=== PATIENT | male | born 1980 | race African-American/Black ===

== ENCOUNTER 2018-11-16 17:11 | Emergency (ER) | payer SELFPAY ==
[~2018-11-16] VITALS: Ht 185.4 cm; Wt 119.0 kg
[~2018-11-16 17:11] MED LIST: IBUP200T44 PO; PSEU1TAB PO
[2018-11-16] MEDS ORDERED: ONDANSETRON PF 4 MG/2 ML VIAL. IV ONE (18:00)
[2018-11-16] MEDS ORDERED: IV NORMAL SALINE 1000ML BAG 1,000 ML IV ONE ×2 (18:00→18:45)
[2018-11-16 18:07] LABS: BASO # 0.1 x10^3/uL (0.0-0.2); BASO % 1 % (0-3); EOS # 0.2 x10^3/uL (0.0-0.7); EOS % 1 % (0-3); HEMATOCRIT 49.7 % (39.0-53.0); HEMOGLOBIN 16.6 g/dL (13.0-17.5); LYMPH # 3.4 x10^3/uL (1.0-4.8); LYMPH % 23 % (24-48); MEAN CORPUSCULAR HEMOGLOBIN 27 pg (25-35); MEAN CORPUSCULAR HGB CONC 33 g/dL (31-37); MEAN CORPUSCULAR VOLUME 79 fL (79-100); MONO # 0.8 x10^3/uL (0.0-1.1); MONO % 6 % (0-9); NEUT # 10.3 x10^3uL (1.8-7.7); NEUT % 70 % (31-73); PLATELET COUNT 221 x10^3/uL (140-400); RED BLOOD COUNT 6.26 x10^6/uL (4.30-5.70); RED CELL DISTRIBUTION WIDTH 12.8 % (11.5-14.5); WHITE BLOOD COUNT 14.8 x10^3/uL (4.0-11.0)
[2018-11-16 18:24] LABS: CALCIUM 9.8 mg/dL (8.5-10.1); CREATININE 1.3 mg/dL (0.7-1.3); POTASSIUM 5.6 mmol/L (3.5-5.1)
--- NOTE | 2018-11-16 18:24 | RAD ---
Chest radiograph 11/16/2018 5:52 PM INDICATION: Dizzy COMPARISON: None available TECHNIQUE: Portable upright frontal view of the chest is provided. FINDINGS: The cardiomediastinal silhouette is within normal limits. There are no pleural effusions. There is no pulmonary vascular congestion. There is no pneumothorax. The lungs are clear. No significant osseous abnormality is identified. IMPRESSION: No acute cardiopulmonary process. Electronically signed by: Angelica Vera MD (11/16/2018 6:21 PM) [facility]
[2018-11-16 18:26] LABS: MAGNESIUM 2.1 mg/dL (1.8-2.4); TOTAL BILIRUBIN 0.4 mg/dL (0.2-1.0); TOTAL PROTEIN 8.2 g/dL (6.4-8.2)
[2018-11-16 18:35] LABS: CREATINE KINASE 306 U/L (39-308)
[2018-11-16] MEDS ORDERED: INSULIN REGULAR 100 UNIT/ML 3ML VIAL. IV ONE (18:45)
[2018-11-16 18:47] LABS: BILIRUBIN,URINE NEGATIVE (NEG); COLOR,URINE YELLOW; NITRITE,URINE NEGATIVE (NEG); PH,URINE 5.5; PROTEIN,URINE NEGATIVE (NEG-TRACE); UROBILINOGEN,URINE 0.2 mg/dL (0.2 mg/dL)
[2018-11-16 18:54] LABS: BARBITURATES NEG (NEG); BENZODIAZEPINES NEG (NEG); CANNABINOIDS NEG (NEG); COCAINE NEG (NEG); METHADONE NEG (NEG); OPIATES NEG (NEG); PHENCYCLIDINE NEG (NEG)
[2018-11-16 18:55] LABS: AMPHETAMINE/METHAMPHETAMINE NEG (NEG)
[2018-11-16 18:58] LABS: CLARITY,URINE CLEAR
[2018-11-16 19:00] LABS: BACTERIA,URINE 0 /HPF (0-FEW); RBC,URINE 0 /HPF (0-2); WBC,URINE 0 /HPF (0-4)
[2018-11-16 19:40] VITALS: BP 148/83
[2018-11-16] MEDS ORDERED: METF10007 PO (19:40)
[2018-11-16] MEDS ORDERED: ONDA4TAB7 PO (19:40)
--- NOTE | 2018-11-16 19:40 | PHYS DOC ---
Past Medical History Past Medical History: No Pertinent History Past Surgical History: No Surgical History Alcohol Use: Occasionally Drug Use: None Adult General Chief Complaint Chief Complaint: NAUSEA/VOMITING/DIARRHA HPI HPI Patient is a 38 year old male with no significant medical history who presents to the ED today complaining of polyuria that has been going on for weeks. Patient states he has family history of diabetes. Patient is also complaining of slight dizziness. Denies anything exacerbating or making the dizziness better. He states he has not seen a doctor since he was a child. He is also complaining of intermittent episodes of nausea and vomiting. Denies any diarrhea. Denies any abdominal pain. Denies any headache. Review of Systems Review of Systems Constitutional: Denies fever or chills [] Eyes: Denies change in visual acuity, redness, or eye pain [] HENT: Denies nasal congestion or sore throat [] Respiratory: Denies cough or shortness of breath [] Cardiovascular: No additional information not addressed in HPI [] GI: Denies abdominal pain, nausea, vomiting, bloody stools or diarrhea [] : Denies dysuria or hematuria [] Musculoskeletal: Denies back pain or joint pain [] Integument: Denies rash or skin lesions [] Neurologic: Reports dizziness. Denies headache, focal weakness or sensory changes [] Endocrine: Reports polyuria, All other systems were reviewed and found to be within normal limits, except as documented in this note. Current Medications Current Medications Current Medications Medications (Trade) Dose Ordered Sig/Fabricio Start Time Stop Time Status Last Admin Dose Admin Insulin Human Regular (HumuLIN R VIAL) 5 unit 1X ONCE 11/16/18 18:45 11/16/18 18:46 DC 11/16/18 18:43 5 UNIT Ondansetron HCl (Zofran) 4 mg 1X ONCE 11/16/18 18:00 11/16/18 18:01 DC 11/16/18 18:13 4 MG Sodium Chloride 1,000 ml @ 1,000 mls/hr 1X ONCE 11/16/18 18:45 11/16/18 19:44 11/16/18 18:42 1,000 MLS/HR Allergies Allergies Allergies Coded Allergies Type Severity Reaction Last Updated Verified No Known Drug Allergies 11/25/13 No Physical Exam Physical Exam Constitutional: Obese patient. Well developed, well nourished, no acute distress , non-toxic appearance. [] HENT: Normocephalic, atraumatic, bilateral external ears normal, oropharynx moist, no oral exudates, nose normal. [] Eyes: PERRLA, EOMI, conjunctiva normal, no discharge. [] Neck: Normal range of motion, no tenderness, supple, no stridor. [] Cardiovascular:Heart rate regular rhythm, no murmur [] Lungs & Thorax: Bilateral breath sounds clear to auscultation [] Abdomen: Bowel sounds normal, soft, no tenderness, no masses, no pulsatile masses. [] Skin: Warm, dry, no erythema, no rash. [] Back: No tenderness, no CVA tenderness. [] Extremities: No tenderness, no cyanosis, no clubbing, ROM intact, no edema. [] Neurologic: Alert and oriented X 3, normal motor function, normal sensory function, no focal deficits noted. Cranial nerves II through XII intact Psychologic: Affect normal, judgement normal, mood normal. [] Current Patient Data Vital Signs Vital Signs Date Time Temp Pulse Resp B/P (MAP) Pulse Ox O2 Delivery O2 Flow Rate FiO2 11/16/18 17:58 98.9 104 20 160/84 (109) 97 Room Air 98.9 Lab Values Laboratory Tests Test 11/16/18 17:44 11/16/18 18:00 11/16/18 18:30 11/16/18 18:32 Glucose (Fingerstick) 368 mg/dL (70-99) H 333 mg/dL (70-99) H White Blood Count 14.8 x10^3/uL (4.0-11.0) H Red Blood Count 6.26 x10^6/uL (4.30-5.70) H Hemoglobin 16.6 g/dL (13.0-17.5) Hematocrit 49.7 % (39.0-53.0) Mean Corpuscular Volume 79 fL (79-100) Mean Corpuscular Hemoglobin 27 pg (25-35) Mean Corpuscular Hemoglobin Concent 33 g/dL (31-37) Red Cell Distribution Width 12.8 % (11.5-14.5) Platelet Count 221 x10^3/uL (140-400) Neutrophils (%) (Auto) 70 % (31-73) Lymphocytes (%) (Auto) 23 % (24-48) L Monocytes (%) (Auto) 6 % (0-9) Eosinophils (%) (Auto) 1 % (0-3) Basophils (%) (Auto) 1 % (0-3) Neutrophils # (Auto) 10.3 x10^3uL (1.8-7.7) H Lymphocytes # (Auto) 3.4 x10^3/uL (1.0-4.8) Monocytes # (Auto) 0.8 x10^3/uL (0.0-1.1) Eosinophils # (Auto) 0.2 x10^3/uL (0.0-0.7) Basophils # (Auto) 0.1 x10^3/uL (0.0-0.2) Sodium Level 136 mmol/L (136-145) Potassium Level 5.6 mmol/L (3.5-5.1) H Chloride Level 94 mmol/L (98-107) L Carbon Dioxide Level 30 mmol/L (21-32) Anion Gap 12 (6-14) Blood Urea Nitrogen 23 mg/dL (8-26) Creatinine 1.3 mg/dL (0.7-1.3) Estimated GFR (Cockcroft-Gault) 74.0 BUN/Creatinine Ratio 18 (6-20) Glucose Level 413 mg/dL (70-99) H Calcium Level 9.8 mg/dL (8.5-10.1) Magnesium Level 2.1 mg/dL (1.8-2.4) Total Bilirubin 0.4 mg/dL (0.2-1.0) Aspartate Amino Transferase (AST) 26 U/L (15-37) Alanine Aminotransferase (ALT) 44 U/L (16-63) Alkaline Phosphatase 147 U/L (46-116) H Creatine Kinase 306 U/L (39-308) Creatine Kinase MB (Mass) 0.8 ng/mL (0.0-3.6) Creatine Kinase MB Relative Index 0.3 % (0-4) Troponin I Quantitative < 0.017 ng/mL (0.000-0.055) CD-Oiy-B-Type Natriuretic Peptide < 5 pg/mL (0-124) Total Protein 8.2 g/dL (6.4-8.2) Albumin 4.0 g/dL (3.4-5.0) Albumin/Globulin Ratio 1.0 (1.0-1.7) Lipase 319 U/L (73-393) Thyroid Stimulating Hormone (TSH) 0.939 uIU/mL (0.358-3.74) Urine Collection Type Clean catch Urine Color Yellow Urine Clarity Clear Urine pH 5.5 Urine Specific [place] >=1.030 Urine Protein Negative mg/dL (NEG-TRACE) Urine Glucose (UA) >=1000 mg/dL (NEG) Urine Ketones (Stick) 40 mg/dL (NEG) Urine Blood Negative (NEG) Urine Nitrite Negative (NEG) Urine Bilirubin Negative (NEG) Urine Urobilinogen Dipstick 0.2 mg/dL (0.2 mg/dL) Urine Leukocyte Esterase Negative (NEG) Urine RBC 0 /HPF (0-2) Urine WBC 0 /HPF (0-4) Urine Squamous Epithelial Cells None /LPF Urine Bacteria 0 /HPF (0-FEW) Urine Opiates Screen Neg (NEG) Urine Methadone Screen Neg (NEG) Urine Barbiturates Neg (NEG) Urine Phencyclidine Screen Neg (NEG) Urine Amphetamine/Methamphetamine Neg (NEG) Urine Benzodiazepines Screen Neg (NEG) Urine Cocaine Screen Neg (NEG) Urine Cannabinoids Screen Neg (NEG) Urine Ethyl Alcohol Neg (NEG) Test 11/16/18 19:21 Glucose (Fingerstick) 286 mg/dL (70-99) H Laboratory Tests 11/16/18 18:00 Laboratory Tests 11/16/18 18:00 EKG EKG [] Radiology/Procedures Radiology/Procedures [] Course & Med Decision Making Course & Med Decision Making Pertinent Labs and Imaging studies reviewed. (See chart for details) This is a 38-year-old male patient with no significant previous medical history presented to the ED today with polyuria for weeks and dizziness. CMP was 413, anion gap is normal, ketones noted in urine. Potassium 5.6. EKG with no acute changes. Blood pressure 160/84 on arrival to the ED with a heart rate of 104. Patient was offered admission for new onset of diabetes. He declined. He was given 2 L of IV fluids, insulin, blood glucose 286. Talked to patient about his diabetes management including diet and exercise as well as being on medications. With as high as his numbers are insulin will be ideal. Unfortunately this patient has no follow-up. Putting him on any insulin is not safe. He requires diabetes education as well. He is also hypertensive at 160/84, I did not start him on high blood pressure medications. I requested he follows up with the PCP for this. He was started on metformin. Provided him a doctor's list for follow-up. Fabion Disclaimer Dragon Disclaimer This electronic medical record was generated, in whole or in part, using a voice recognition dictation system. Departure Departure Impression: Primary Impression: Hypertension Additional Impressions: Hyperkalemia Diabetes mellitus Disposition: 01 HOME, SELF-CARE Condition: STABLE Referrals: NO PCP (PCP) follow up with a doctor from the list provided Patient Instructions: 1800 Calorie Diet for Diabetes Meal Planning, Diabetes and Exercise-SportsMed, Hyperkalemia, Hypertension Additional Instructions: You were evaluated in the emergency room on noted to be diabetic. We started you on medications. Ensure you take them as prescribed. Follow-up with primary care doctor in the course of next week. Please review the information we provided you an discharged on diabetic diet. Scripts Ondansetron Hcl (ZOFRAN) 4 Mg Tablet 1 TAB PO Q6HRS, #20 TAB Prov: ALEJANDRO LIRA APRN 11/16/18 Metformin Hcl (METFORMIN HCL) 1,000 Mg Tablet 1000 MG PO [id number] for ANTI-DIABETIC, #60 TAB 0 Refills Prov: ALEJANDRO LIRA APRN 11/16/18 Problem Qualifiers Primary Impression: Hypertension Hypertension type: unspecified Qualified Codes: I10 - Essential (primary) hypertension Additional Impressions: Diabetes mellitus Diabetes mellitus type: type 2 Diabetes mellitus care home insulin use: without care home use Diabetes mellitus complication status: with unspecified complications Qualified Codes: E11.8 - Type 2 diabetes mellitus with unspecified complications ALEJANDRO LIRA APRN Nov 16, 2018 19:40
--- NOTE | 2018-11-17 14:49 | EKG ---
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
== END 2018-11-16 20:06 | disposition home or self-care (01) ==
LOC: ER 17:11
DX: I10 Essential (primary) hypertension (principal); E87.5 Hyperkalemia; E11.8 Type 2 diabetes mellitus with unspecified complications; R35.8 Other polyuria; R42 Dizziness and giddiness; R11.2 Nausea with vomiting, unspecified; E66.1 Drug-induced obesity; Z68.34 Body mass index [BMI] 34.0-34.9, adult
CPT/HCPCS: 36415; 71045; 80053; 80307; 81001; 82553; 82962; 83690; 83735; 83880; 84443; 84484; 85025; 93005; 96361; 96374; 96375; 99284; J1815; J2405; J7030

== ENCOUNTER 2019-11-05 00:05 | Emergency (ER) | payer SELFPAY ==
[~2019-11-05 00:05] MED LIST changes: +METF10007 PO; +ONDA4TAB7 PO
== END 2019-11-05 02:30 | disposition left against medical advice (07) ==
LOC: ER 00:05
DX: S49.90XA Unspecified injury of shoulder and upper arm, unspecified arm, initial encounter (principal); Z53.21 Procedure and treatment not carried out due to patient leaving prior to being seen by health care provider; X58.XXXA Exposure to other specified factors, initial encounter; Y93.89 Activity, other specified; Y92.89 Other specified places as the place of occurrence of the external cause; Y99.8 Other external cause status